=== PATIENT | female | born 1990 | race Caucasian/White ===

== ENCOUNTER → 2016-08-07 | Outpatient (CLI) | payer BC ==
[~2016-08-07] MED LIST: HUMALIN SC; INSU100I2 SC; OXYC-57 PO; PREN1TAB29 PO
== END | disposition home or self-care (01) ==
LOC: C.LABSPEC 11:51
PROVIDERS: ATTEND Obstetrics & Gynecology
DX: O24.414 Gestational diabetes mellitus in pregnancy, insulin controlled (principal)

== ENCOUNTER 2016-08-22 05:23 | Inpatient (IN) | payer BC, OTHER ==
--- NOTE | 2016-08-18 10:50 | PAT Medication Instructions ---
Service Date Aug 18, 2016. Current Home Medication List Insulin Lispro (Human) (Humalog Kwikpen), 15 UNITS SC QAM Insulin Lispro (Human) (Humalog Kwikpen), 20 UNITS SC NOON Insulin Lispro (Human) (Humalog Kwikpen), 20-25 UNITS SC QPM Vit W/ Ferrous Fumara (), 1 TAB PO HS [Humalin ], 60 UNITS SC HS Medication Instructions For Your Scheduled Surgery - Take everything (including insulins) as usual the day and night prior to procedure -DO NOT take anything (no insulin) the morning of the procedure -NOTHING TO EAT OR DRINK AFTER MIDNIGHT If you have any questions please call us at [phone] or [phone] or [phone]
[2016-08-18 11:27] LABS: BASO % 0.1 %; BASO ABS # 0.01 K/uL (0-0.2); COMPLETE YES; EOS % 0.5 %; HEMATOCRIT 33.5 % (37-47); IG% 0.9 %; LYMPH % 16.7 %; LYMPH ABS # 1.65 K/uL (1.2-3.4); MEAN CELL VOLUME 90.3 fL (80-100); MEAN CORPUSCULAR HEMOGLOBIN 29.9 pg (25-34); MEAN CORPUSCULAR HGB CONC 33.1 g/dl (32-36); MEAN PLATELET VOLUME 9.7 fL (7.4-10.4); MONO % 3.4 %; NEUT % 78.4 %; PLATELET COUNT 242 K/uL (130-400); RED BLOOD COUNT 3.71 M/uL (4.2-5.4); WHITE BLOOD COUNT 9.88 K/uL (4.8-10.8)
--- NOTE | 2016-08-21 19:30 | History and Physical ---
History & Physical Date Aug 22, 2016. Chief Complaint Intrauterine , breech presentation History of Present Illness Patient is 26yo @ 39 2/7 for scheduled due to breech presentation. has been complicated by insulin-controlled diabetes mellitus and obesity. Past Medical/Surgical History History of abnormal pap with colpo in 2009. History of wisdom teeth surgery, wrist and knee surgery. Additional History Hepatic Disease: No Endocrine Disorder: Yes (GDMA2) Kidney Disease: No Hypertension: No Heart Disease: No Bleeding Tendencies: No Infectious Diseases: No LMP: 11/21/15 Allergies Coded Allergies: No Known Allergies (Unverified , 08/18/16) Home Medications Scheduled Insulin Lispro (Human) (Humalog Kwikpen), 15 UNITS SC QAM Insulin Lispro (Human) (Humalog Kwikpen), 20 UNITS SC NOON Insulin Lispro (Human) (Humalog Kwikpen), 20-25 UNITS SC QPM Vit W/ Ferrous Fumara (), 1 TAB PO HS [Humalin ], 60 UNITS SC HS Physical Examination Skin: warm/dry Eyes: normal inspection Head: normocephalic Respiratory/Chest: normal breath sounds Cardiovascular: regular rate, rhythm Abdomen / GI: non tender, + pertinent finding (gravid) Back: normal inspection Extremities: normal inspection Genitourinary - Female: external genitalia normal, normal pelvic exam Neurologic/Psych: alert, oriented x 3 Addiitonal Comments: Rh+/Rubella immune/GBS negative Diagnosis 26yo @ 39 2/7 with breech presentation, GDMA2, obesity Plan of Treatment Will plan for primary low transverse section. Will admit to L&D. Preoperative ancef and bicitra. CBC, T&S.
[2016-08-22] VITALS (13 sets, daily range): BP systolic 109–125; BP diastolic 44–79; PULSE 85–100; TEMP 36.5–37.1; O2SAT 96–99; Ht 160 cm; Wt 113.2 kg
[~2016-08-22] VITALS: Ht 160 cm; Wt 113.2 kg
[~2016-08-22 05:23] MED LIST changes: -OXYC-57 PO
[2016-08-22] MEDS ORDERED: CEFAZOLIN IV 3,000 MG in DEXTROSE 5% 50ML IV SCH (06:00)
[2016-08-22] MEDS ORDERED: LACTATED RINGER'S 1000ML 1,000 ML IV SCH (06:00)
[2016-08-22] MEDS ORDERED: CEFAZOLIN 3000 MG/65 ML D5W 50 ML IV SCH (06:00)
[2016-08-22] MEDS ORDERED: CITRIC ACID/SODIUM CITRATE 15 ML UDC PO SCH (06:00)
[2016-08-22 06:05] LABS: BASO % 0.3 %; BASO ABS # 0.03 K/uL (0-0.2); COMPLETE YES; EOS % 0.8 %; HEMATOCRIT 34.7 % (37-47); IG% 1.1 %; LYMPH % 24.3 %; LYMPH ABS # 2.67 K/uL (1.2-3.4); MEAN CELL VOLUME 90.6 fL (80-100); MEAN CORPUSCULAR HEMOGLOBIN 30.5 pg (25-34); MEAN CORPUSCULAR HGB CONC 33.7 g/dl (32-36); MEAN PLATELET VOLUME 9.3 fL (7.4-10.4); MONO % 5.9 %; NEUT % 67.6 %; PLATELET COUNT 256 K/uL (130-400); RED BLOOD COUNT 3.83 M/uL (4.2-5.4)
[2016-08-22] MEDS ORDERED: PHENYLEPHRINE HCL INJ 10 MG/ML VIAL ONE (06:53)
[2016-08-22] MEDS ORDERED: FENTANYL CITRATE INJ 50 MCG/1 ML 2 ML VIAL ONE (06:53)
[2016-08-22] MEDS ORDERED: MoRPHine SULFATE PF 1 MG/ML 10 ML AMP/VIAL ONE (06:53)
[2016-08-22] MEDS ORDERED: OXYTOCIN INJ 10 UNITS/ML VIAL ONE (06:53)
--- NOTE | 2016-08-22 07:30 | History & Physical Bridge Note ---
H&P Re-Evaluation Bridge Note: I have examined the patient, reviewed the History & Physical and in the interval since the performance of the History & Physical I have noted the following changes of clinical significance: No changes noted
[2016-08-22] MEDS ORDERED: ONDANSETRON INJ 2 MG/ML 2 ML VIAL ONE (08:11)
--- NOTE | 2016-08-22 08:56 | [facility] Post Operative Brief Note ---
Immediate Operative Summary Operative Date Aug 22, 2016. Pre-Operative Diagnosis Term ; Breech presentation Post-Operative Diagnosis Same Procedure(s) Performed Primary Caesarean ; Delivery of a live male child at [address] Ramirez Product Coordinator Surgeon(s) Dr. Porter Estimated Blood Loss 600 cc Findings Viable male , Apgars 8/9 Wt 7#13.8. Normal uterus, ovaries. 1cm left paratubal cyst. Specimens cord blood placenta-hold arterial and venous gases Drains slaughter to gravity, clear yellow Anesthesia spinal Complication(s) None Disposition L&D
[2016-08-22] MEDS ORDERED: NALOXONE HCL INJ 1 MG in SODIUM CHLORIDE 0.9% 1000ML 1,000 ML IV PRN (09:09)
[2016-08-22] MEDS ORDERED: SODIUM CHLORIDE 0.9% 1000ML 1,000 ML IV PRN (09:09)
[2016-08-22] MEDS ORDERED: NALOXONE HCL INJ 0.08 MG in SYRINGE 1.8 ML IV PRN (09:09)
[2016-08-22] MEDS ORDERED: LACTATED RINGER'S 1000ML 500 ML IV PRN (09:09)
[2016-08-22] MEDS ORDERED: NO NARCOTICS OR SEDATIVES SCH (09:15)
[2016-08-22] MEDS ORDERED: ONDANSETRON INJ 2 MG/ML 2 ML VIAL IV PRN (09:15)
[2016-08-22] MEDS ORDERED: DIPHTHERIA/TETANUS/PERTUSSIS 0.5 ML SYR/VIAL IM. ONE (09:15)
[2016-08-22] MEDS ORDERED: MEPERIDINE HCL 25 MG/ML CARP IV PRN (09:15)
[2016-08-22] MEDS ORDERED: BENZOCAINE 20% AER SPR 82.5 GM CAN EXT PRN (09:15)
[2016-08-22] MEDS ORDERED: MoRPHine SULFATE PF 1 MG/ML 10 ML AMP/VIAL INT SPINAL PRN (09:15)
[2016-08-22] MEDS ORDERED: HYDROCORTISONE ACETATE 25 MG SUPP PR PRN (09:15)
[2016-08-22] MEDS ORDERED: NALBUPHINE HCL INJ 10 MG/ML AMP IV PRN (09:15)
[2016-08-22] MEDS ORDERED: LANOLIN OINT EXT PRN ×2 (09:15)
[2016-08-22] MEDS ORDERED: DiphenhydrAMINE HCL 50 MG/ML VIAL IV PRN (09:15)
[2016-08-22] MEDS ORDERED: MoRPHine SULFATE 2 MG/ML CARP IV PRN (09:15)
[2016-08-22] MEDS ORDERED: EpHEDrine SULFATE INJ 50 MG/ML AMP IV PRN (09:15)
[2016-08-22] MEDS ORDERED: SUPERCREAM 0.870 % 15GM JAR EXT PRN (09:15)
[2016-08-22] MEDS ORDERED: SENNA 8.6 MG TAB PO PRN (09:15)
[2016-08-22] MEDS ORDERED: NALOXONE HCL 0.4 MG/1 ML VIAL/CARP IV PRN (09:15)
--- NOTE | 2016-08-22 09:26 | OPERATIVE REPORT ---
DATE OF OPERATION: 08/22/2016 PREOPERATIVE DIAGNOSES: 1. Term intrauterine . 2. Breech presentation. 3. Gestational diabetes mellitus A2. 4. Obesity. POSTOPERATIVE DIAGNOSIS: Same. PROCEDURE PERFORMED: Primary low transverse section. SURGEON: Dr. Suni Ramirez. DRAFTER AUTOMOTIVE DESIGN LAYOUT: Dr. Porter. ESTIMATED BLOOD LOSS: 600 mL. FINDINGS: Viable male , Apgars 8 and 9, weight 7 pounds 13.8 ounces. Normal uterus and ovaries with a 1 cm left paratubal cyst noted. SPECIMENS: Cord blood, placenta and cord gases. DRAINS: Butterfield to gravity with clear yellow urine at the conclusion of the case. ANESTHESIA: Spinal. COMPLICATIONS: None. DISPOSITION: Labor and delivery. DESCRIPTION OF PROCEDURE: The patient was seen in the preoperative holding area where risks, benefits, alternatives to surgery were reviewed. She elected to proceed with the section. She had previously signed informed consent in the office. She was taken to the operating room where spinal anesthesia was introduced. She was placed in the supine position with a leftward tilt. The timeout was called and patient, procedure, personnel, allergies and antibiotics were confirmed. She was given 3 grams of Ancef preoperatively. She was prepared and draped in the usual sterile fashion. A Pfannenstiel skin incision was made with a scalpel and carried through to the underlying layer of the fascia. The fascia was nicked at midline and this incision was extended bilaterally with both blunt and sharp dissection. The superior aspect of the fascial incision was grasped with Stacey clamps x2, elevated off the underlying rectus abdominis muscles and dissected bluntly and sharply. In a similar fashion, the inferior aspect of fascial incision was dissected. The muscles were at midline. The peritoneum was entered bluntly digitally and the incision was extended bluntly. A bladder blade was placed. A bladder flap was created using Metzenbaum scissors. The bladder blade was replaced. The uterine incision was made with a new scalpel. The infant was delivered from a complete breech presentation, delivering a right foot first followed by the left foot followed by the body. The bilateral arms were swept and then the head was delivered. Mouth and nose were suctioned and a spontaneous cry was heard. The cord was doubly clamped and cut. The baby was handed off to the awaiting pediatrics team. A segment of cord was retained for cord gases. Cord blood was obtained. The placenta was removed spontaneously intact with a 3-vessel cord. The uterus was exteriorized. The hysterotomy incision was reapproximated using 0 Vicryl in a running locked stitch. A second layer of the same suture was used to imbricate the hysterotomy incision. The posterior uterus was inspected and the abdomen was irrigated. The uterus was returned to the abdomen. The hysterotomy incision was again inspected and noted to be hemostatic. The gutters were cleared of all clots and debris. The fascial incision was then closed using 0 Vicryl in a running stitch. The subcutaneous adipose tissue was reapproximated using 2-0 plain gut suture in a running stitch. The skin was reapproximated using 4-0 Vicryl in a running subcuticular stitch. Steri-Strips were applied. The patient tolerated the procedure well. A bandage was applied. The patient will be taken back to her room on labor and delivery for complete recovery. I attest to the content of the Intraoperative Record and any orders documented therein. Any exceptio ns are noted below.
[2016-08-22] MEDS ORDERED: OXYTOCIN INJ 20 UNITS in LACTATED RINGER'S 1000ML 1,000 ML IV SCH (09:30)
[2016-08-22] MEDS: KETOROLAC TROMETHAMINE 30 MG/ML VIAL IV. PRN (11:57)
--- NOTE | 2016-08-22 12:57 | Anesthesiology Progress Note ---
Anesthesia Post Op Note Date & Time Aug 22, 2016 at 12:57 Vital Signs Pain Intensity: 4.0 Vital Signs Past 12 Hours Date Time Temp Pulse Resp B/P Pulse Ox O2 Delivery O2 Flow Rate FiO2 08/22/16 11:15 14 97 08/22/16 11:15 97 Room Air 08/22/16 11:15 36.5 85 14 110/44 97 Room Air Notes Mental Status: alert / awake / arousable, participated in evaluation Pt Amnestic to Procedure: Yes Nausea / Vomiting: adequately controlled Pain: adequately controlled Airway Patency, RR, SpO2: stable & adequate BP & HR: stable & adequate Hydration State: stable & adequate Neuraxial Anesthesia: was administered, sensory block is resolving Anesthetic Complications: no major complications apparent
[2016-08-22] MEDS: DOCUSATE SODIUM 100 MG CAP PO SCH (20:25)
[2016-08-23] VITALS (8 sets, daily range): BP systolic 107–111; BP diastolic 61–66; PULSE 90–100; TEMP 36.5–37.1; O2SAT 94–99
[2016-08-23] MEDS: KETOROLAC TROMETHAMINE 30 MG/ML VIAL IV. PRN (00:52)
[2016-08-23] MEDS ORDERED: ONDANSETRON INJ 2 MG/ML 2 ML VIAL IV PRN (01:52)
[2016-08-23] MEDS ORDERED: DiphenhydrAMINE HCL 50 MG/ML VIAL IV PRN (01:52)
[2016-08-23] MEDS ORDERED: KETOROLAC TROMETHAMINE 30 MG/ML VIAL IV. PRN (01:52)
[2016-08-23] MEDS ORDERED: OXYCODONE/ACETAMINOPHEN 5-325 TAB PO PRN (01:52)
[2016-08-23] MEDS ORDERED: DC INTRASPINAL MORPHINE SCH (01:52)
[2016-08-23 06:49] LABS: BASO % 0.1 %; BASO ABS # 0.01 K/uL (0-0.2); COMPLETE YES; EOS % 0.3 %; HEMATOCRIT 28.2 % (37-47); IG% 0.9 %; LYMPH % 14.9 %; LYMPH ABS # 1.54 K/uL (1.2-3.4); MEAN CELL VOLUME 91.3 fL (80-100); MEAN CORPUSCULAR HEMOGLOBIN 29.8 pg (25-34); MEAN CORPUSCULAR HGB CONC 32.6 g/dl (32-36); MEAN PLATELET VOLUME 9.1 fL (7.4-10.4); MONO % 5.1 %; NEUT % 78.7 %; PLATELET COUNT 232 K/uL (130-400); RED BLOOD COUNT 3.09 M/uL (4.2-5.4); WHITE BLOOD COUNT 10.32 K/uL (4.8-10.8)
[2016-08-23] MEDS: DOCUSATE SODIUM 100 MG CAP PO SCH ×2 (07:32→19:39)
[2016-08-23] MEDS: PRENATAL VITAMIN TAB PO SCH (07:32)
[2016-08-23] MEDS: IBUPROFEN 600 MG TAB PO PRN ×4 (07:33→21:12)
[2016-08-23] MEDS: OXYCODONE/ACETAMINOPHEN 5-325 TAB PO PRN ×4 (07:33→21:10)
--- NOTE | 2016-08-23 08:41 | Progress Note ---
Subjective Aug 23, 2016. Subjective conversation w/ patient, physical exam Ambulation: ambulating normally Voiding: no voiding problems Passing Gas: Yes Diet Tolerance: Regular Diet Lochia: Moderate Feeding Type: Breast Feeding Pain: CONTROLLED Review of Systems Constitutional: No problem reported Respiratory: No problem reported Cardiac: No problem reported Breast: No problem reported Abdomen: No problem reported Female : No problem reported Objective Vital Signs Date Time Temp Pulse Resp B/P Pulse Ox O2 Delivery O2 Flow Rate FiO2 08/23/16 04:30 37.0 94 18 107/61 Room Air 08/23/16 02:00 18 94 08/23/16 01:00 18 96 08/23/16 00:30 96 Room Air 08/23/16 00:30 37.1 100 20 111/66 96 Room Air 08/23/16 00:00 18 94 08/22/16 23:00 18 96 08/22/16 22:01 20 99 08/22/16 21:00 18 98 08/22/16 20:00 20 99 08/22/16 19:00 37.1 100 20 125/79 99 Room Air 08/22/16 19:00 37.1 100 20 125/79 Room Air 08/22/16 19:00 20 99 08/22/16 18:00 20 99 08/22/16 17:00 18 98 08/22/16 16:00 20 98 08/22/16 15:30 99 Room Air 08/22/16 15:30 36.6 86 20 109/68 99 Room Air 08/22/16 15:00 20 99 08/22/16 15:00 16 96 08/22/16 13:15 16 97 08/22/16 12:15 16 96 08/22/16 11:15 14 97 08/22/16 11:15 97 Room Air 08/22/16 11:15 36.5 85 14 110/44 97 Room Air Physical Exam General Appearance: WELL-APPEARING, NO APPARENT DISTRESS Respiratory/Chest: no respiratory distress Cardiovascular: regular rate, rhythm Abdomen: non tender, soft Fundus: Firm Incision Description: Clean, Dry & Intact Extremities: normal inspection Laboratory Results Last 24 Hours Test 08/22/16 09:11 08/22/16 14:49 08/23/16 06:10 Bedside Glucose 96 mg/dl 92 mg/dl White Blood Count 10.32 K/uL Red Blood Count 3.09 M/uL Hemoglobin 9.2 g/dL Hematocrit 28.2 % Mean Corpuscular Volume 91.3 fL Mean Corpuscular Hemoglobin 29.8 pg Mean Corpuscular Hemoglobin Concent 32.6 g/dl Platelet Count 232 K/uL Mean Platelet Volume 9.1 fL Neutrophils (%) (Auto) 78.7 % Lymphocytes (%) (Auto) 14.9 % Monocytes (%) (Auto) 5.1 % Eosinophils (%) (Auto) 0.3 % Basophils (%) (Auto) 0.1 % Neutrophils # (Auto) 8.12 K/uL Lymphocytes # (Auto) 1.54 K/uL Monocytes # (Auto) 0.53 K/uL Eosinophils # (Auto) 0.03 K/uL Basophils # (Auto) 0.01 K/uL RDW Standard Deviation 48.3 fL RDW Coefficient of Variation 14.6 % Immature Granulocyte % (Auto) 0.9 % Immature Granulocyte # (Auto) 0.09 K/uL Assessment and Plan Post-Op Day#: 1 Continue Routine Care: POD#1 doing well. Routine postop care.
[2016-08-23] MEDS ORDERED: BISACODYL 5 MG TABEC PO ONE (22:00)
[2016-08-24] MEDS: OXYCODONE/ACETAMINOPHEN 5-325 TAB PO PRN ×3 (00:47→10:18)
[2016-08-24] MEDS: IBUPROFEN 600 MG TAB PO PRN ×3 (00:48→10:17)
[2016-08-24 06:17] LABS: HEMATOCRIT 26.1 % (37-47)
[2016-08-24 07:30] VITALS: BP 127/70; PULSE 102; TEMP 36.8
[2016-08-24] MEDS: PRENATAL VITAMIN TAB PO SCH (08:14)
[2016-08-24] MEDS: DOCUSATE SODIUM 100 MG CAP PO SCH (08:14)
--- NOTE | 2016-08-24 08:43 | Progress Note ---
Subjective Aug 24, 2016. Subjective conversation w/ patient, physical exam, lab review Ambulation: ambulating normally Voiding: no voiding problems Passing Gas: Yes Diet Tolerance: Regular Diet Lochia: Small Feeding Type: Breast Feeding Pain: controlled with oral pain meds Objective Vital Signs Date Time Temp Pulse Resp B/P Pulse Ox O2 Delivery O2 Flow Rate FiO2 08/24/16 07:30 36.8 102 16 127/70 Room Air 08/23/16 23:40 99 Room Air 08/23/16 23:40 36.8 90 20 107/64 99 Room Air 08/23/16 16:00 95 Room Air 08/23/16 16:00 36.5 100 16 111/65 95 Room Air Physical Exam General Appearance: WELL-APPEARING, WD/WN, NO APPARENT DISTRESS Respiratory/Chest: lungs clear, normal breath sounds Cardiovascular: regular rate, rhythm Abdomen: normal bowel sounds, non tender, soft Fundus: Firm, Non-Tender, Relation to Umbilicus (at u) Incision Description: Clean, Dry & Intact Extremities: non-tender, normal inspection Laboratory Results Last 24 Hours Test 08/24/16 05:52 Hemoglobin 8.7 g/dL Hematocrit 26.1 % Assessment and Plan Post-Op Day#: 2 Continue Routine Care: Doing well. Routine care.
[2016-08-24] MEDS ORDERED: BISACODYL 10 MG SUPP PR PRN (09:15)
[2016-08-24] MEDS ORDERED: OXYC-57 PO (10:03)
--- NOTE | 2016-08-24 10:04 | Discharge Instructions ---
Discharge Instructions Admission Reason for Admission: Breech Discharge Discharge Diagnosis / Problem: s/p Discharge Goals Goal(s): Routine recovery after Medications Continue Dispensed Medications: lansinoh Activity Recommendations Activity Limitations: per Instructions/Follow-up section . Instructions / Follow-Up Instructions / Follow-Up ACTIVITY RECOMMENDATIONS: * Gradual return to full activity over the next 2-3 weeks. * No lifting - nothing heavier than baby over the next 2-3 weeks. * Do not engage in vigorous exercise, sexual activity or sports until cleared by your physician. * Do not drive or operate any motorized equipment until cleared by your physician. * You may shower/bathe daily. MEDICATIONS: For discomfort or pain, you may use Acetaminophen (Tylenol), Ibuprofen (Advil), or Naproxen (Aleve) following the package directions. For constipation you may use Colace following the package directions. BREAST CARE: If you are not breast feeding: * Wear a supportive bra 24 hours a day for one to two weeks. * Avoid stimulating your breasts and nipples as much as possible during the first few weeks after delivery. * When taking a shower, have the warm water hit your back, not breasts. * When your breasts feel full, apply ice packs. Usually three to four times a day helps ease the discomfort. * Take a mild pain medication (Tylenol / Motrin) when you are uncomfortable. If breast feeding: * Use breast milk to lubricate nipples. Lansinoh cream may be used for sore nipples. You do not need to remove cream prior to breast feeding. If using a different brand of cream, check the label for directions regarding removal of cream prior to nursing. * Wear a supportive bra. * If having problems with breasts or breast feeding, call a specialty development consultant or your health care provider. SPECIAL CARE INSTRUCTIONS: When you are discharged from the hospital, it is important for you to follow the instructions listed below: * During the first week at home, you should be able to care for yourself and your baby. In addition, the usual light household activities are encouraged. * Limit your activities to the way you feel. Do not try to clean the house or move furniture. Be sensible. * If you actively engage in sports and have done so up until the time of your delivery, you may resume these activities as soon as you feel able. This may take up to one month or even longer. Use good judgment. * Continue to take your vitamins for at least six weeks after the of your baby. * Your diet need not be limited unless you were on a special diet before your delivery. Breast-feeding mothers need around 2500 calories per day and at least 64-80 ounces of fluid per day (8 to 10 glasses). * You should eat foods from the four major food groups. Crash diets or fad diets are to be avoided. Eating lean meats, fresh fruits and vegetables, low-fat dairy products, high fiber foods and a regular exercise program, will help you get back to your pre- weight without putting your health at risk. * Constipation is sometimes a problem after delivery. Take a mild laxative as needed. If breast feeding, Milk of Magnesia is acceptable to use. You may use a suppository or Fleets enema. * A daily shower or tub bath is suggested. Wash incision daily with warm soapy water and pat dry. It doesn't need to be covered unless drainage is present. * A bloody vaginal discharge will usually continue until around four weeks . A small amount of bleeding may continue for as long as six weeks. Vaginal discharge changes from the bright red bleeding after delivery to pink then brownish and finally yellowish-pink before becoming white and disappearing. * Bleeding may increase with activity. Your first period may come in 4-8 weeks. If you are breast feeding, your period may be delayed even longer. * [place] (sex) can begin whenever both you and your partner feel comfortable and do not have any form of genital infection. It is recommended that you wait at least six weeks for internal and external healing to occur. If you have questions, please talk to your health care practitioner. A condom should be used to prevent infection and . * Foreplay, gentle intercourse and lubrication is very important the first several times to prevent pain. A water-based lubricant such as K-Y jelly or Astroglide may be used. * If you have RH negative blood and your baby is RH positive, you will receive RHOGAM by injection prior to discharge. The nurse will give you a card to keep with you that has the date and place that you received RHOGAM after delivery. * During your care, you had a Rubella screen done to check for the presence of rubella antibodies in your blood. If your test was negative, you will receive a Rubella vaccine prior to discharge. This vaccine may cause a fever, soreness at the injection site and flu-like symptoms. If these symptoms persist, notify your health care practitioner. is not advised for one month after a Rubella vaccine. * Verbalizes understanding of car seat law as reviewed with patient nursing. * Car Seat hand-out given and reviewed with patient by nursing. * Shaken baby information reviewed with patient by nursing. Call you doctor if: * Heavy bleeding (saturating several pads an hour) or passing clots the size of your fist. * A fever >101 degrees F (38.3 degrees C) on two occasions four hours apart and /or chills. * Unusual pain in the pelvic or vaginal areas. * Call the doctor for any increased redness, drainage or swelling around the incision and any pain unrelieved by prescribed pain medication. * "Baby Blues" lasting longer than two weeks. If you have any questions or concerns, call your health care practitioner at . FOLLOW UP VISIT: * Please call the office at to schedule a 6 week examination. It is important you keep this appointment. It is important for you to make arrangements for either yearly or twice yearly check-ups thereafter. Current Hospital Diet Patient's current hospital diet: Regular OB Diet Discharge Diet Recommended Diet: Regular Diet Procedures Procedures Performed: Primary Caesarean ; Delivery of a live male child at 0809 Pending Studies Studies pending at discharge: no Medical Emergencies . Who to Call and When: Medical Emergencies: If at any time you feel your situation is an emergency, please call [phone] immediately. . Non-Emergent Contact Non-Emergency issues call your: Smoking Pipe Liner . . "Provider Documentation" section prepared by Mary Delatorre. VTE Core Measure Inpt VTE Proph given/why not?: Treatment not indicated [place] Drug Monitoring Program Search Results: patient reviewed within database, no issues identified
[2016-08-24 11:25] VITALS: BP_DIAS 70; PULSE 102; TEMP 36.8
--- NOTE | 2016-09-08 10:00 | DISCHARGE SUMMARY ---
DISCHARGE DIAGNOSES: 1. Term intrauterine . 2. Breech presentation. 3. Gestational diabetes, type A2. 4. Obesity. PROCEDURE PERFORMED: Primary low transverse section. COURSE OF HOSPITAL STAY: The patient was admitted for section for known breech presentation. Primary low transverse section was performed. Post-procedure recovery was unremarkable and she was discharged to home. FINDINGS: Viable male with APGARs 8 and 9. Weight 7 pounds 13.8 ounces. ACTIVITY: Pelvic rest and no heavy lifting. FOLLOWUP: Six weeks in the office. DIET: Regular. MEDICATIONS: Percocet and Motrin. CONDITION ON DISCHARGE: Stable and good. ANTONIO
== END 2016-08-24 11:50 | disposition home or self-care (01) | DRG 765 ==
LOC: C.LD 05:23 → EDSTATUS 09:00 → C.OBG 11:28
PROVIDERS: ADMIT Obstetrics & Gynecology; ATTEND Obstetrics & Gynecology
PROC: 10D00Z1 Extraction of Products of Conception, Low, Open Approach (ICD-10-PCS; principal; 2016-08-22 07:30)
DX: O32.1XX0 Maternal care for breech presentation, not applicable or unspecified (principal); O24.113 Pre-existing type 2 diabetes mellitus, in pregnancy, third trimester; O99.214 Obesity complicating childbirth; Z37.0 Single live birth; Z3A.39 39 weeks gestation of pregnancy

== ENCOUNTER 2020-11-05 05:31 | Inpatient (IN) ==
--- NOTE | 2020-10-02 14:45 | Anesthesiology Consultation ---
Date of Service October 02, 2020 Assessment & Plan (1) Encounter for pre-operative examination: Chart Review Chart Review: entry level buyer initiated Per nursing assessment on 10/02/20, pt resides in [facility]- travels to [facility] to work (works at [employer] remotely)- use PPE. No known Covid positive contacts or Covid related symptoms. Pt did test Covid positive in June 2020- had SOB and cognestion- symptoms have since resolved. Preop Covid testing scheduled 10/30/20= will await results. History Surgery Operation Date: 11/05/20 07:45 Proposed Procedures p Section in LD - Kathy Payan MD, FACOG s Bilateral Post Tubal Ligation Labor & Deliv - Kathy Payan MD, FACOG Height/Weight Height: 5 ft 2 in Weight: 108.862 kg Allergies Allergy/AdvReac Type Severity Reaction Status Date / Time No Known Drug Allergies Allergy Verified 10/02/20 14:00 Medications Home Medications Medication Instructions Recorded Confirmed Last Taken prenat.vits,jaime,zah-jdam-dwiub 1 tab PO DAILY 03/30/20 10/02/20 Unknown acetone (urine) test #50 ea 04/30/20 10/02/20 Unknown blood sugar diagnostic #150 ea 04/30/20 10/02/20 Unknown blood-glucose meter #1 ea 04/30/20 10/02/20 Unknown lancets #102 ea 04/30/20 10/02/20 Unknown pen needle, diabetic 32 gauge x #150 ea 09/06/20 10/02/20 Unknown 5/32" BD Insulin Syringe 0.5 mL 29 gauge #100 ea NS 09/07/20 10/02/20 Unknown x 1/2" insulin NPH isoph U-100 human 46 unit SUBCUT QPM 10/02/20 10/02/20 Unknown [Novolin N NPH U-100 Insulin] insulin aspart U-100 [Novolog 10 unit SUBCUT TID 10/02/20 10/02/20 Unknown Flexpen U-100 Insulin] Past Medical History Medical History History of COVID-19 begining of june 2020, works at [employer] and was tested there. was sob, congestion and no problems at present Insulin controlled gestational diabetes mellitus (GDM) during depression first c section and no problems since Past Family History Family History Grandmother (Paternal) Breast cancer Other Alcohol abuse Depression Diabetes Denies family history of Ovarian cancer Past Surgical History Surgical History H/O wrist surgery left History of knee surgery left History of loop electrical excision procedure (LEEP) History of low transverse section 08/22/16 History of wisdom tooth extraction Social History Smoking Status: Never smoker Do You Dip or Chew Tobacco: No Hx Alcohol Use: No (not while ) Hx Substance Use: No substance use type: does not use
--- NOTE | 2020-10-31 09:45 | History & Physical Report ---
Date of Service October 31, 2020 Assessment & Plan (1) 39 weeks gestation of : (2) Previous delivery affecting , antepartum: (3) Request for sterilization: (4) Insulin controlled gestational diabetes mellitus (GDM) during : (5) Severe obesity (BMI >= 40): Patient planning repeat c/s with tubal. Will plan for thursday11/05/2020. Risks, alternatives and complications reviewed. Permanence, irreversibility, failure, regret and risk of ectopic with tubal sterilization reviewed. Risk of section, including but not limited to bleeding, infection, injury to surrounding structures of mother or injury to baby, wound complications, deep venous thrombosis, pulmonary embolism, further complications or hospitalizations reviewed. Consents reviewed and signed. PATs today. Labs am of surgery. History of Present Illness Chief Complaint: planned c/s and tubal Primary Care Provider: SOCO Burch 30yo at 38+wk ega presents to office with plan for 39 week repeat c/s and planned tubal with edc 11/12/20. Patient denies leaking, bleeding or contractions. Good movement. Sure she wants tubal, done childbearing. Checking glucoses and improved with insulin. Last week u/s with EFW 74% and AC% decreased to 74%. Fetus cephalic. PNC c/b 1. GDM on insulin 2. obesity 3. prior c/s--desires repeat c/s 4. Desires sterilization PNL RH pos, RI, GBS negative. Covid test neg 10/31/20. OBH: breech prior c/s GYNH: nl paps, no stds All Active Problems Insulin controlled gestational diabetes mellitus (GDM) during Previous delivery affecting , antepartum Gestational diabetes mellitus (GDM) affecting , antepartum Severe obesity (BMI >= 40) (Acute) History of loop electrical excision procedure (LEEP) Allergies Allergy/AdvReac Type Severity Reaction Status Date / Time No Known Drug Allergies Allergy Verified 10/31/20 09:04 Home Medications Medication Instructions Recorded Confirmed Type prenat.vits,jaime,ixc-paen-jmtgm 1 tab PO DAILY 03/30/20 10/31/20 History acetone (urine) test #50 ea 04/30/20 10/31/20 Rx blood sugar diagnostic #150 ea 04/30/20 10/31/20 Rx blood-glucose meter #1 ea 04/30/20 10/31/20 Rx lancets #102 ea 04/30/20 10/31/20 Rx pen needle, diabetic 32 gauge x #150 ea 09/06/20 10/31/20 Rx 5/32" BD Insulin Syringe 0.5 mL 29 gauge #100 ea NS 09/07/20 10/31/20 Rx x 1/2" insulin NPH isoph U-100 human 46 unit SUBCUT QPM 10/02/20 10/31/20 History [Novolin N NPH U-100 Insulin] insulin aspart U-100 [Novolog 10 unit SUBCUT TID 10/02/20 10/31/20 History Flexpen U-100 Insulin] Patient History Medical History History of COVID-19 begining of june 2020, works at [employer] and was tested there. was sob, congestion and no problems at present Insulin controlled gestational diabetes mellitus (GDM) during depression first c section and no problems since Surgical History H/O wrist surgery left History of knee surgery left History of loop electrical excision procedure (LEEP) History of low transverse section 08/22/16 History of wisdom tooth extraction Family History Grandmother (Paternal) Breast cancer Other Alcohol abuse Depression Diabetes Denies family history of Ovarian cancer Social History (Updated 03/30/20 @ 15:27 by Kelsey Langston) Smoking Status: Never smoker Second Hand Exposure: No; Hx Alcohol Use: No (not while ) Hx Substance Use: No Preferred Language: Citizen Of [place] Communication Ability: Effective Tin Cutter Required: No Beliefs That Will Affect Care: None marital status: marital status details: Alex (30) [phone] Current Living Situation: Spouse Current Living Situation Comment: lives with spouse and son current occupational status: employed current occupation: HR @ [employer] Feels Safe at Home: Yes Assistive Devices: None Review of Systems per hpi no fever Physical Exam Constitutional: WD/WN, vitals as above Respiratory: normal respiratory effort, lungs clear to auscultation Cardiovascular: Rate/Rhythm: regular rate and regular rhythm Gastrointestinal (Abdomen): soft gravid nt fhts normal Musculoskeletal: no edema nontender calves Neurologic: grossly normal Psychiatric: A+Ox3, euthymic affect Coding Level of Care Code None Diagnoses 39 weeks gestation of Z3A.39 Previous delivery affecting , antepartum O34.219 Request for sterilization Z30.2 Insulin controlled gestational diabetes mellitus (GDM) during O24.414 Severe obesity (BMI >= 40) E66.01
[2020-11-05] MEDS ORDERED: ceFAZolin 3,000 MG in SYRINGE 0 ML IV SCH (06:00)
[2020-11-05] MEDS ORDERED: LACTATED RINGER'S 1,000 ML IV SCH ×2 (06:00→10:38)
[2020-11-05] MEDS ORDERED: CITRIC ACID/SODIUM CITRATE 15 ML UDC PO SCH (06:00)
[2020-11-05 06:30] LABS: Basophils # (auto) 0.02 K/uL (0-0.2); Basophils % (auto) 0.2 %; Eosinophils # (auto) 0.08 K/uL (0-0.5); Hematocrit (blood only) 31.6 % (37-47); Hemoglobin 10.8 g/dL (12.0-16.0); Immature Granulocytes # (auto) 0.05 K/uL (0.00-0.02); Immature Granulocytes % (auto) 0.6 %; Lymphocytes # (auto) 1.64 K/uL (1.2-3.4); Lymphocytes % (auto) 20.2 %; Mean Corpuscular Hemoglobin 31.2 pg (25-34); Mean Corpuscular Hgb Conc 34.2 g/dL (32-36); Mean Corpuscular Volume 91.3 fL (80-100); Mean Platelet Volume 9.8 fL (7.4-10.4); Monocytes # (auto) 0.43 K/uL (0.11-0.59); Monocytes % (auto) 5.3 %; Neutrophils % (auto) 72.7 %; Platelet Count 179 K/uL (130-400); RDW Coefficient of Variation 14.5 % (11.5-14.5); RDW Standard Deviation 47.5 fL (36.4-46.3); Red Blood Count 3.46 M/uL (4.2-5.4); White Blood Count 8.12 K/uL (4.8-10.8)
[2020-11-05] MEDS ORDERED: MoRPHine SULFATE PF 1 MG/ML 10 ML AMP/VIAL ONE (07:09)
--- NOTE | 2020-11-05 07:15 | History & Physical Bridge Note ---
Date of Service November 05, 2020 History & Physical Bridge Note I have examined the patient, reviewed the History & Physical and in the interval since the performance of the History & Physical I have noted the following changes of clinical significance: no changes noted
[2020-11-05] MEDS ORDERED: ONDANSETRON INJ 2 MG/ML 2 ML VIAL ONE (08:33)
[2020-11-05] MEDS ORDERED: ePHEDrine sulfate 50 MG/ML SYR ONE (08:33)
[2020-11-05] MEDS ORDERED: OXYTOCIN 10 UNITS/ML VIAL ONE (08:33)
[2020-11-05] MEDS ORDERED: PHENYLEPHRINE 100MCG/ML 5ML SYR ONE (08:33)
[2020-11-05] MEDS ORDERED: NALOXONE HCL 0.08 MG in SYRINGE 1.8 ML IV PRN (08:37)
[2020-11-05] MEDS ORDERED: MEPERIDINE HCL 25 MG/ML CARP/VIAL IV PRN (08:37)
[2020-11-05] MEDS ORDERED: NALOXONE HCL 1 MG in SODIUM CHLORIDE 0.9% 1000ML 1,000 ML IV PRN (08:37)
[2020-11-05] MEDS ORDERED: HYDROmorphone INJ 0.5 MG/0.5 ML SYR IV PRN (08:37)
[2020-11-05] MEDS ORDERED: NALOXONE HCL 0.4 MG/1 ML VIAL/CARP IV PRN (08:37)
[2020-11-05] MEDS ORDERED: METOCLOPRAMIDE HCL 20 MG in SODIUM CHLORIDE 0.9% 50 ML IV PRN (08:37)
[2020-11-05] MEDS ORDERED: LACTATED RINGER'S 500 ML IV PRN (08:37)
[2020-11-05] MEDS ORDERED: ONDANSETRON INJ 2 MG/ML 2 ML VIAL IV PRN (08:37)
[2020-11-05] MEDS ORDERED: diphenhydrAMINE 50 MG/ML VIAL IV PRN (08:37)
[2020-11-05] MEDS ORDERED: MoRPHine SULFATE PF 1 MG/ML 10 ML AMP/VIAL INT SPINAL ONE (08:37)
[2020-11-05] MEDS ORDERED: KETOROLAC 30 MG/ML VIAL IV PRN (08:37)
[2020-11-05] MEDS ORDERED: PROMETHAZINE HCL 25 MG in SODIUM CHLORIDE 0.9% 50 ML IV PRN (08:37)
[2020-11-05] MEDS ORDERED: MoRPHine SULFATE 2 MG/ML CARP IV PRN (08:37)
[2020-11-05] MEDS ORDERED: SODIUM CHLORIDE 0.9% 1000ML 1,000 ML IV SCH (08:45)
[2020-11-05] MEDS ORDERED: NO NARCOTICS OR SEDATIVES SCH (08:45)
[2020-11-05] MEDS ORDERED: DC INTRASPINAL MORPHINE SCH (08:45)
--- NOTE | 2020-11-05 08:45 | Post Operative Brief Note ---
PG Immediate Post Op with CF Date of Surgery November 05, 2020 Pre & Post Diagnosis Operation Date: 11/05/20 07:30 Pre-Op Diagnosis: 39 weeks gestation of Previous delivery affecting , antepartum Request for sterilization Post-Op Diagnosis: 39 weeks gestation of Previous delivery affecting , antepartum Request for sterilization I identified the patient and participated in the time-out.: Yes Procedure Operation Date: 11/05/20 07:30 Actual Procedures p Repeat Low Transverse Section with living male child at 0810 in main operating room 3(Not Applicable) - Kathy Payan MD, FACOG s Modified [place] Bilateral Tubal Ligation(Bilateral) - Kathy Payan MD, FACOG Surgeon Kathy Payan MD, FACOG Rol[employer] Operator Lety Estimated Blood Loss 600 Findings Consistent with Post-Op Diagnosis (viable , apgars 9,10. normal uterus tubes and ovaries bilaterally. left paratubal cyst about 2-3cm.) Fluids 1200 Specimens Specimen Description: Permanent A.) placenta--hold B.) portion of right fallopian tube C.) portion of left fallopian tube Drains [place] Catheter Anesthesia Type Spinal Complications none Disposition Accompanied Patient To Recovery: No Disposition: L&D
--- NOTE | 2020-11-05 08:46 | Operative Report ---
PG Post Operative Report Pre & Post Diagnosis Operation Date: 11/05/20 07:30 Pre-Op Diagnosis: 39 weeks gestation of Gestational Diabetes requring insuin Severe Obesity Previous delivery affecting , antepartum--desires repeat section Desires sterilization Post-Op Diagnosis: 39 weeks gestation of Gestational Diabetes requiring insulin Severe obesity Previous delivery affecting , antepartum--desires repeat section Desires sterilization I identified the patient and participated in the time-out.: Yes Procedure Operation Date: 11/05/20 07:30 Actual Procedures p Repeat Low Transverse Section with living male child at 0810 in main operating room 3(Not Applicable) - Kathy Payan MD, FACOG s Modified [place] Bilateral Tubal Ligation(Bilateral) - Kathy Payan MD, FACOG Surgeon Kathy Payan MD, FACOG Second Ride Fare Collector Lety Estimated Blood Loss 600 Findings Consistent with Post-Op Diagnosis (viable male , apgars 9,10. normal uterus tubes and ovaries bilaterally. left paratubal cyst about 2-3cm.) Fluids 1200 Specimens portions of right and left fallopian tubes, sent separately. Drains slaughter Anesthesia Type Spinal Complications none Disposition Accompanied Patient To Recovery: No Disposition: L&D Indications 30yo at 39 wks ega today who desires repeat section for history of prior section and desires permanent sterilization. Ready for procedure today. No new complaints or concerns. Description of Procedure The patient was taken to the operating room and identified. After adequate anesthesia was obtained, she was placed in the supine position with a leftward tilt on the operating table and prepped and draped in the usual sterile fashion. A slaughter catheter had already been placed. The knife was used to create a Pfannensteil skin incision that was carried down to the underlying layer of fascia. The fascia was nicked in the midline and this opening was extended laterally using Alvarez scissors. Stacey clamps were placed on the superior and inferior aspect of the fascial incision tenting it upward and the underlying rectus muscles were dissected off the overlying fascia both sharply and bluntly using Alvarez scissors. The rectus muscles were bluntly in the midline. The peritoneal cavity was bluntly entered into. This opening was stretched. The bladder blade was placed. The vesicouterine peritoneum was elevated and opened up into and the bladder flap was created digitally and bladder blade was replaced. The knife was used to create a hysterotomy and this opening was stretched. The operators hand was placed through the hysterotomy and the bladder blade was removed. The head was elevated and flexed and with fundal pressure the head was delivered. The shoulders and body were rapidly delivered. A loose nuchal cord was noted and reduced. The cord was clamped and cut and the 's mouth and nares were bulb suction. The was handed off to the awaiting pediatricians. Cord blood was obtained. The placenta was manually expressed. The uterus was exteriorized and cleared of all clots and debris. Dilute IV Pitocin was begun. The uterine tone was improving. The hysterotomy was closed in a running interlocking fashion using 0 Vicryl followed by a second imbricating layer of 0 Vicryl. The hysterotomy was hemostatic. Attention was turned to the left fallopian tube that was followed out to its fimbriated end. The tube was elevated using a reilly clamp and a knuckle of tube was doubly ligated with 2-0 plain suture and transected. The specimen was sent. The stumps were cauterized with the bovie. The right fallopian tube was identified to its fimbriated end, elevated, double ligated and transected in a similar fashion. The specimen was sent and the stump of tube was cauterized with the bovie. The uterus was returned to the abdomen. The gutters were cleared of all clots and debris. The hysterotomy was reinspected and noted to be hemostatic. The tubal sites were visualized, intact and hemostatic. The fascia was then closed in running fashion using 0 Vicryl. The subcutaneous fat was copiously irrigated and reapproximated using 2-0 chromic. The skin was closed in a subcuticular fashion using 4-0 Vicryl. At this point the procedure was terminated. The patient was transferred to the recovery room in stable condition. All sponge, lap and needle counts are correct x2. I attest to the content of the Intraoperative Record and any orders documented therein. Any exceptions are noted below. OB Procedure charges OB Charges [id number] C/S w/ Tubal
--- NOTE | 2020-11-05 10:07 | Anesthesiology Progress Note ---
Date of Service November 05, 2020 Anesthesia Post Procedure Vital Signs Vital Signs: Temp Pulse Resp BP Pulse Ox 11/05/20 10:05 88 94 11/05/20 10:04 92 H 89 L 11/05/20 10:00 87 96 11/05/20 09:56 95 H 97/53 L 11/05/20 09:55 91 H 94 11/05/20 09:50 90 94 11/05/20 09:48 83 90 11/05/20 09:46 93 H 20 101/58 L 11/05/20 09:45 79 93 11/05/20 09:43 88 89 L 11/05/20 09:40 87 92 11/05/20 09:36 91 H 20 101/59 L 11/05/20 09:35 96 H 93 11/05/20 09:30 87 94 11/05/20 09:26 86 104/62 11/05/20 09:25 88 94 11/05/20 09:20 86 94 11/05/20 09:17 95 H 22 109/62 11/05/20 09:15 97 H 95 11/05/20 09:10 83 94 11/05/20 09:07 83 20 114/58 L 11/05/20 09:05 85 98 11/05/20 09:00 88 98 11/05/20 08:55 36.4 C L 85 20 117/60 99 11/05/20 07:06 36.7 C 83 20 119/60 11/05/20 06:05 36.8 C 18 11/05/20 05:44 90 120/71 Pain Intensity Abdomen: Pain Intensity: 2 Transfer of Care Handoff Completed per policy Notes Mental Status: alert / awake / arousable and participated in evaluation Patient Amnestic to Procedure: Yes Nausea / Vomiting: adequately controlled Pain: adequately controlled Airway Patency, RR, SpO2: stable & adequate BP & HR: stable & adequate Hydration State: stable & adequate Neuraxial Anesthesia: was administered and sensory block is resolving Anesthetic Complications: no major complications apparent
[2020-11-05] MEDS ORDERED: MAGNESIUM HYDROXIDE SUSP 30 ML UDC PO PRN (10:38)
[2020-11-05] MEDS ORDERED: SUPERCREAM 0.870% 15 GM JAR EXT PRN (10:38)
[2020-11-05] MEDS ORDERED: DIPHTHERIA/TETANUS/PERTUSSIS 0.5 ML SYR/VIAL IM ONE (10:38)
[2020-11-05] MEDS ORDERED: BENZOCAINE 20% AER SPR 82.5 GM CAN EXT PRN (10:38)
[2020-11-05] MEDS ORDERED: HYDROCORTISONE ACETATE 25 MG SUPP PR PRN (10:38)
[2020-11-05] MEDS: ePHEDrine sulfate 50 MG/ML AMP IV PRN ×3 (10:46→11:09)
[2020-11-05] MEDS ORDERED: PHENYLEPHRINE HCL 10 MG/ML VIAL ONE (11:12)
[2020-11-05] MEDS ORDERED: PHENYLEPHRINE 100MCG/ML 5ML SYR IV PRN (11:25)
[2020-11-05 13:14] LABS: Hematocrit (blood only) 30.3 % (37-47); Hemoglobin 10.4 g/dL (12.0-16.0)
[2020-11-05] MEDS: OXYTOCIN 20 UNITS in LACTATED RINGER'S 1,000 ML IV SCH ×2 (13:37→22:38)
[2020-11-05] MEDS: SIMETHICONE 80 MG CHEW PO SCH ×2 (17:51→20:13)
[2020-11-06] MEDS ORDERED: ONDANSETRON INJ 2 MG/ML 2 ML VIAL IV PRN (02:38)
[2020-11-06] MEDS ORDERED: diphenhydrAMINE 50 MG/ML VIAL IV PRN (02:38)
[2020-11-06] MEDS ORDERED: PROMETHAZINE HCL 25 MG in SODIUM CHLORIDE 0.9% 50 ML IV PRN (02:38)
[2020-11-06] MEDS ORDERED: ZOLPIDEM TARTRATE 5 MG TAB PO PRN (02:38)
[2020-11-06] MEDS ORDERED: diphenhydrAMINE Capsule 25 MG CAP PO PRN (02:38)
[2020-11-06] MEDS: oxyCODONE/ACETAMINOPHEN 5mg/325mg TAB PO PRN ×3 (06:00→18:38)
[2020-11-06] MEDS: IBUPROFEN 600 MG TAB PO PRN ×3 (06:01→18:39)
[2020-11-06 06:21] LABS: Basophils # (auto) 0.02 K/uL (0-0.2); Basophils % (auto) 0.2 %; Eosinophils # (auto) 0.05 K/uL (0-0.5); Eosinophils % (auto) 0.5 %; Hematocrit (blood only) 26.2 % (37-47); Hemoglobin 8.9 g/dL (12.0-16.0); Immature Granulocytes # (auto) 0.02 K/uL (0.00-0.02); Immature Granulocytes % (auto) 0.2 %; Lymphocytes # (auto) 1.58 K/uL (1.2-3.4); Lymphocytes % (auto) 15.8 %; Mean Corpuscular Hemoglobin 31.1 pg (25-34); Mean Corpuscular Volume 91.6 fL (80-100); Mean Platelet Volume 9.7 fL (7.4-10.4); Monocytes # (auto) 0.39 K/uL (0.11-0.59); Monocytes % (auto) 3.9 %; Neutrophils # (auto) 7.95 K/uL (1.4-6.5); Neutrophils % (auto) 79.4 %; Platelet Count 195 K/uL (130-400); RDW Coefficient of Variation 14.5 % (11.5-14.5); RDW Standard Deviation 48.7 fL (36.4-46.3); Red Blood Count 2.86 M/uL (4.2-5.4); White Blood Count 10.01 K/uL (4.8-10.8)
--- NOTE | 2020-11-06 07:24 | Obstetrical Progress Note ---
Date of Service <Sudha Mazariegos DO - Last Filed: 11/06/20 07:56> November 06, 2020 Assessment & Plan <Sudha Mazariegos DO - Last Filed: 11/06/20 07:56> (1) state: POD #1 - PNL: Rh pos, RI, GBS neg, COVID neg - Feels well today. Pain well controlled with ibuprofen 600mg Q4H PRN and Percocet 5-325mg Q4H PRN. - Slaughter catheter removed overnight. Patient has not yet voided independently. Will continue to monitor. - Eating well w/o nausea or vomiting. - Routine care -- OOB, ambulation, diet progression as tolerated - Hgb 8.9 this AM (down from 10.4 post-op yesterday). Will continue to monitor symptoms. Patient on iron 325mg po daily. - After discharge will have 6 week follow-up with Dr. Payan. Subjective <Sudha Mazariegos DO - Last Filed: 11/06/20 07:56> Alexsandra Contreras is a 30 y/o female who is POD #1 following repeat delivery with bilateral tubal ligation at 39+1 weeks. She reports feeling well overall this morning. Mild abdominal cramping and 4/10 pain well managed on analgesics. She has has voided x1 this AM since removal of slaguhter catheter. Tolerating meals overnight without difficulty, nausea, or vomiting. Patient has been able to ambulate some. She did report an episode of lightheadedness/dizziness with ambulation several hours ago but has not had recurrent lightheadedness or dizziness. She is passing gas but has not yet had a bowel movement. Has persistent lochia with some improvement this morning. Currently . Review of Systems Denies fever or chills. Denies shortness of breath or cough. Denies chest pain. Denies breast pain. Denies dysuria. Denies leg pain or leg swelling. Denies headache or changes in vision. Physical Exam <Sudha Mazariegos DO - Last Filed: 11/06/20 07:56> General: Alert, oriented. No acute distress. Cardiac: Regular rate and rhythm. No murmurs. Respiratory: Clear to auscultation bilaterally a/p, no wheezes/rales/rhonchi. No increased work of breathing. Symmetrical chest rise. No respiratory distress. Abdomen: Soft, nontender, nondistended. Bowel sounds present. Uterus: Uterine fundus firm, palpable 1 cm below umbilicus. Surgical scar is well healing and c/d/i. Lower Extremities: No lower extremity edema or swelling. No deep calf pain. Amado's negative bilaterally. Results & Data ([facility]) <Sudha Mazariegos, - Last Filed: 11/06/20 07:56> Vital Signs (Past 12 Hours) Vital Signs Temp Pulse Resp BP Pulse Ox 11/06/20 04:20 36.9 C 105 H 20 111/75 95 11/06/20 01:55 18 95 11/06/20 01:00 18 95 11/06/20 00:00 37.2 C 109 H 20 107/73 95 11/05/20 23:15 18 98 11/05/20 22:10 19 99 11/05/20 21:05 19 98 11/05/20 20:00 37.0 C 109 H 20 111/77 97 Laboratory Results 11/06/20 11/05/20 Range/Units 05:52 12:56 WBC 10.01 (4.8-10.8) K/uL RBC 2.86 L (4.2-5.4) M/uL Hgb 8.9 L 10.4 L (12.0-16.0) g/dL Hct 26.2 L 30.3 L (37-47) % MCV 91.6 (80-100) fL MCH 31.1 (25-34) pg MCHC 34.0 (32-36) g/dL RDW Std Deviation 48.7 H (36.4-46.3) fL RDW Coeff of John 14.5 (11.5-14.5) % Plt Count 195 (130-400) K/uL MPV 9.7 (7.4-10.4) fL Immature Gran % (Auto) 0.2 % Neut % (Auto) 79.4 % Lymph % (Auto) 15.8 % Bremer % (Auto) 3.9 % Eos % (Auto) 0.5 % Baso % (Auto) 0.2 % Neut # (Auto) 7.95 H (1.4-6.5) K/uL Lymph # (Auto) 1.58 (1.2-3.4) K/uL Bremer # (Auto) 0.39 (0.11-0.59) K/uL Eos # (Auto) 0.05 (0-0.5) K/uL Baso # (Auto) 0.02 (0-0.2) K/uL Immature Gran # (Auto) 0.02 (0.00-0.02) K/uL <Kathy Payan MD, FACOG - Last Filed: 11/06/20 08:04> Co-Signing Physician Notes Resident Physician Supervision Note: I was present with Dr. Mazariegos during the history and exam. I discussed the case with the resident and agree with the findings and plan as documented in the note. Any exceptions or clarifications are listed here: doing well postop day #1, no further n/v. no chest pain or sob. +flatus, voided well this am. pain control adeq. ff 1 down nt, incision c/d/i. ext nt calves. no edema. routine pp care. hgb noted. repeat in am. , ri, rh pos. Documented By: Kahty Payan MD, FACOG Resident Activity Tracking <Sudha Mazariegos, - Last Filed: 11/06/20 07:56> Resident Involvement: Resident Care Provided Care Provided: OB Delivery
[2020-11-06] MEDS: DOCUSATE SODIUM 100 MG CAP PO SCH ×3 (08:13→21:29)
[2020-11-06] MEDS: SIMETHICONE 80 MG CHEW PO SCH ×4 (08:13→21:14)
[2020-11-06] MEDS: PRENATAL VITAMIN 1 TAB PO SCH (08:13)
[2020-11-06] MEDS: FERROUS SULFATE 325 MG TAB PO SCH (08:14)
[2020-11-07] MEDS: IBUPROFEN 600 MG TAB PO PRN ×3 (00:30→11:38)
[2020-11-07] MEDS: oxyCODONE/ACETAMINOPHEN 5mg/325mg TAB PO PRN ×3 (00:30→11:38)
[2020-11-07 07:21] LABS: Hematocrit (blood only) 25.4 % (37-47); Hemoglobin 8.4 g/dL (12.0-16.0)
--- NOTE | 2020-11-07 08:03 | Obstetrical Progress Note ---
Date of Service <Sudha Mazariegos DO - Last Filed: 11/07/20 08:03> November 07, 2020 Assessment & Plan <Sudha Mazariegos DO - Last Filed: 11/07/20 08:03> (1) state: POD #2 - PNL: Rh pos, RI, GBS neg, COVID neg - Feels well today. Eating well, voiding well, ambulating well. - Pain well controlled with ibuprofen 600mg Q4H PRN and Percocet 5-325mg Q4H PRN. - Routine care -- OOB, ambulation, diet progression as tolerated - Hgb 8.4 this AM (8.9 yesterday AM and 10.4 immediately post-op yesterday). Will continue to monitor symptoms. Patient on iron 325mg po daily. - Patient with hx of depression which required medical management with Zoloft. Recommend close f/u including 2 week visit for mood check. After discharge will also have 6 week follow-up with Dr. Payan. Subjective <Sudha Mazariegos DO - Last Filed: 11/07/20 08:03> Alexsandra Contreras is a 30 y/o female who is POD #2 following repeat delivery with bilateral tubal ligation at 39+1 weeks. She reports feeling well overall this morning. Mild abdominal cramping and 4/10 pain well managed on analgesics. Voiding without dysuria. Tolerating meals overnight without difficulty, nausea, or vomiting. Patient has been able to ambulate some. She is passing gas. Has persistent lochia with some improvement this morning. Patient has decided not to pursue and is now switching to bottle feeding. Review of Systems Denies fever or chills. Denies shortness of breath or cough. Denies chest pain. Denies breast pain. Denies dysuria. Denies leg pain or leg swelling. Denies headache or changes in vision. Physical Exam <Sudha Mazariegos DO - Last Filed: 11/07/20 08:03> General: Alert, oriented. No acute distress. Cardiac: Regular rate and rhythm. No murmurs. Respiratory: Clear to auscultation bilaterally a/p, no wheezes/rales/rhonchi. No increased work of breathing. Symmetrical chest rise. No respiratory distress. Abdomen: Soft, nontender, nondistended. Bowel sounds present. Uterus: Uterine fundus firm, palpable 1 cm below umbilicus. Surgical scar is well healing and c/d/i. Lower Extremities: No lower extremity edema or swelling. No deep calf pain. Amado's negative bilaterally. Results & Data ([facility]) <Sudha Mazariegos DO - Last Filed: 11/07/20 08:03> Vital Signs (Past 12 Hours) Vital Signs Temp Pulse Resp BP Pulse Ox 11/07/20 00:35 36.6 C 106 H 20 118/81 11/06/20 20:05 36.8 C 105 H 18 131/76 97 Laboratory Results 11/07/20 Range/Units 06:36 Hgb 8.4 L (12.0-16.0) g/dL Hct 25.4 L (37-47) % <Suni Ramirez DO - Last Filed: 11/07/20 08:22> Co-Signing Physician Notes Resident Physician Supervision Note: I was present with Dr. Mazariegos during the history and exam. I discussed the case with the resident and agree with the findings and plan as documented in the note. Any exceptions or clarifications are listed here: POD#2 doiong well. DC instructions reviewed. Rx sent. Documented By: Suni Ramirez DO Resident Activity Tracking <Sudha Mazariegos, - Last Filed: 11/07/20 08:03> Resident Involvement: Resident Care Provided Care Provided: OB Delivery
[2020-11-07] MEDS: SIMETHICONE 80 MG CHEW PO SCH (08:33)
[2020-11-07] MEDS: PRENATAL VITAMIN 1 TAB PO SCH (08:33)
[2020-11-07] MEDS: DOCUSATE SODIUM 100 MG CAP PO SCH (08:33)
[2020-11-07] MEDS: FERROUS SULFATE 325 MG TAB PO SCH (08:33)
--- NOTE | 2020-11-09 18:40 | Discharge Summary ---
Date of Service Date of admission: November 05, 2020 Date of discharge: November 07, 2020 Admission HPI Per Admitting Provider 30yo at 38+wk egraymon presents to office with plan for 39 week repeat c/s and planned tubal with edc 11/12/20. Patient denies leaking, bleeding or contractions. Good movement. Sure she wants tubal, done childbearing. Checking glucoses and improved with insulin. Last week u/s with EFW 74% and AC% decreased to 74%. Fetus cephalic. PNC c/b 1. GDM on insulin 2. obesity 3. prior c/s--desires repeat c/s 4. Desires sterilization PNL RH pos, RI, GBS negative. Covid test neg 10/31/20. OBH: breech prior c/s GYNH: nl paps, no stds All Active Problems Insulin controlled gestational diabetes mellitus (GDM) during Previous delivery affecting , antepartum Gestational diabetes mellitus (GDM) affecting , antepartum Severe obesity (BMI >= 40) (Acute) History of loop electrical excision procedure (LEEP) Discharge Data Consultations 11/05/20 05:36 Consult Anesthesiology Stat Procedures Performed Operation Date: 11/05/20 07:30 Actual Procedures p Repeat Low Transverse Section with living male child at 0810 in main operating room 3(Not Applicable) - Kathy Payan MD, [facility] Modified [place] Bilateral Tubal Ligation(Bilateral) - Kathy Payan MD, [facility] [place] Hospital Course (1) 39 weeks gestation of : (2) Request for sterilization: (3) Insulin controlled gestational diabetes mellitus (GDM) during : (4) Previous delivery affecting , antepartum: The patient underwent the above stated procedure without incident and her postoperative course and recovery was uncomplicated. On her postoperative day #2 she was tolerating a regular diet, voiding spontaneously, ambulating without problem and was using oral meds for adequate pain control. Her postoperative hemoglobin was 8.4. She was given written and verbal discharge instructions and told to followup in office at 6wks. She was given appropriate pain medicine prescriptions. Coding Level of Care Code None Diagnoses 39 weeks gestation of Z3A.39 Request for sterilization Z30.2 Insulin controlled gestational diabetes mellitus (GDM) during O24.414 Previous delivery affecting , antepartum O34.219
== END 2020-11-07 12:22 | disposition home or self-care (01) | DRG 784 ==
LOC: 4S1 05:31 → EDSTATUS 07:45 → 4S2 15:44
PROC: M.PPTLD (2020-11-05 07:30)